=== PATIENT | female | born 1945 | race Hispanic/Latino ===

== ENCOUNTER 2020-02-24 05:24 | Emergency (ER) | payer BC, MEDICARE ==
[~2020-02-24] VITALS: Ht 152.4 cm; Wt 68.0 kg
[2020-02-24] MEDS: HYDRALAZINE HCL 20 MG/ML VIAL IV STA (06:05)
[2020-02-24] MEDS: SODIUM CHLORIDE FLUSH 10 ML SYR INJ PRN (06:12)
[2020-02-24] MEDS ORDERED: HYDRALAZINE HCL 20 MG/ML VIAL ONE (06:13)
[2020-02-24] MEDS ORDERED: LISINOPRIL40 MG PO (06:21)
--- NOTE | 2020-02-24 06:22 | Emergency Department Note ---
History of Present Illnes History of Present Illness Chief Complaint: Hypertension 208/110 History of Present Illness This is a 75 year old female. was doing well until 3 dasys ago then mild lightheadedness, mild romero then realized that her bp 208/110. no other physical complaints. Historian: Patient Arrival Mode: Car History limited by: condition of the patient (normal) Licensed Clinical Social Worker Required: No Onset (how long ago): hour(s) (12) Location: see above Quality: see above Radiation: Reports non-radiation Severity: mild Onset quality: gradual Duration (how long): hour(s) (12) Timing of current episode: intermittent Progression: worsening Chronicity: recurrent (has been off bp meds for a while) Context: Denies recent illness, Denies recent surgery, Denies recent immobilization, Denies recent travel, Denies trauma/injury, Denies new medications, Denies hx of DVT/PE, Denies non-compliance w/ medications Relieving factors: none Exacerbating factors: none Associated symptoms: Reports headaches Treatments prior to arrival: none Past Medical/Family History Physician Review I have reviewed the patient's past medical and family history. Any updates have been documented here. Past Medical History Recent Fever: No Clinical Suspicion of Infectio: No New/Unexplained Change in Ment: No Past Medical History: Hypertension Past Surgical History: None Social History Smoking Cessation: Never Smoker Counseling Performed: No Alcohol Use: Occasional Any Illegal Drug Use: No Physically hurt or threatened: No Other Last Tetanus: UNKNOWN Any Pre-Existing Lines (PICC,: No Review of Systems Review of Systems Constitutional: Reports no symptoms EENTM: Reports no symptoms Cardiovascular: Reports no symptoms Respiratory: Reports no symptoms Gastrointestinal: Reports no symptoms Genitourinary: Reports no symptoms Musculoskeletal: Reports no symptoms Integumentary: Reports no symptoms Neurological: Reports as per HPI Psychological: Reports no symptoms Endocrine: Reports no symptoms Hematological/Lymphatic: Reports no symptoms Review of other systems: All other systems negative Physical Exam Related Data Allergies: Coded Allergies: No Known Allergies (Unverified , 10/19/15) Triage Vital Signs Vital Signs Date Time Temp Pulse Resp B/P (MAP) Pulse Ox O2 Delivery O2 Flow Rate FiO2 02/24/20 05:30 97.8 61 18 186/86 100 Vital signs reviewed: Yes Physical Exam CONSTITUTIONAL Constitutional: Present well-developed, Present well-nourished HENT HENT: Present normocephalic, Present atraumatic, Present oropharynx clear/moist, Present nose normal HENT L/R: Present left ext ear normal, Present right ext ear normal EYES Eyes: Reports PERRL, Reports conjunctivae normal NECK Neck: Present ROM normal, Present supple PULMONARY Pulmonary: Present effort normal, Present breath sounds normal CARDIOVASCULAR Cardiovascular: Present regular rhythm, Present heart sounds normal, Present capillary refill normal, Present normal rate GASTROINTESTINAL Abdominal: Present soft, Present nontender, Present bowel sounds normal GENITOURINARY Genitourinary: Present exam deferred SKIN Skin: Present warm, Present dry MUSCULOSKELETAL Musculoskeletal: Present ROM normal NEUROLOGICAL Neurological: Present alert, Present oriented x 3, Present no gross motor or sensory deficits PSYCHOLOGICAL Psychological: Present mood/affect normal, Present judgement normal Procedures 12 Lead ECG Interpretation ECG Interpretation : ECG: ECG 1 Date: Feb 24, 2020 Rhythm: sinus rhythm Rate: normal QRS axis: normal ST segments normal: Yes T waves normal: Yes Clinical Impression: normal ECG Assessment & Plan Medical Decision Making MDM htn Reassessment Reassessment time: 06:35 Reassessment sbp decreased to the 150's s/p meds Assessment & Plan Final Impression: (1) Hypertension Depart Disposition: HOME, SELF-CARE Last Vital Signs Date Time Temp Pulse Resp B/P (MAP) Pulse Ox O2 Delivery O2 Flow Rate FiO2 02/24/20 06:05 187/79 02/24/20 05:30 97.8 61 18 100 Home Meds Active Scripts Lisinopril (LISINOPRIL) 40 Mg Tablet, 40 MG PO DAILY, #30 TAB 1 Refill Prov:SHARON SEGURA 02/24/20 Medications in the ED Sodium Chloride 10 ml PRN PRN INJ IV SITE FLUSH Last administered on 02/24/20at 06:12; Admin Dose 10 ML; Start 02/24/20 at 06:00; Stop 03/25/20 at 05:59 Hydralazine HCl 10 mg NOW STAT IV Last administered on 02/24/20at 06:05; Admin Dose 10 MG; Start 02/24/20 at 05:59; Stop 02/24/20 at 06:01; Status DC Hydralazine HCl 20 mg STK-MED ONCE .ROUTE ; Start 02/24/20 at 06:13; Stop 11/23/20 at 06:07; Status DC SHARON SEGURA Feb 24, 2020 06:22
--- NOTE | 2020-02-24 06:27 | NUR ---
pt states she feels much better, denies SLIME or dizziness at this time. Dr Ordonez states even tho its been 15 minutes since IV meds given pt is OK for discharge.
[2020-02-24 06:34] VITALS: BP 141/77
== END 2020-02-24 06:40 | disposition home or self-care (01) ==
LOC: FSED 06:15
DX: I10 Essential (primary) hypertension (principal); R42 Dizziness and giddiness
CPT/HCPCS: 80053; 82553; 84484; 85025; 93005; 99282; J0360